=== PATIENT | female | born 1975 | race African-American/Black ===

== ENCOUNTER 2018-08-17 19:45 | Emergency (ER) | payer BC, OTHER ==
[2018-08-17] MEDS ORDERED: SOD CHLORIDE 0.9% 500 ML IV (20:08)
[2018-08-17 20:43] LABS: URINE BLOOD (Dip) POC Negative (NEGATIVE); URINE GLUCOSE (Dip) POC Negative (NEGATIVE); URINE KETONES (Dip) POC Negative (NEGATIVE); URINE LEUKOCYTE EST (Dip) POC Negative (NEGATIVE); URINE NITRITE (Dip) POC Negative (NEGATIVE); URINE TOTAL PROTEIN POC Negative (NEGATIVE)
[2018-08-17 20:43] LABS: URINE PH (Dip) POC 5.5 (5.0-8.5)
[2018-08-17] MEDS: KETOROLAC 30 MG INJ IV (21:59)
[2018-08-17 22:04] LABS: ADD MAN DIFF? NO
[2018-08-17 22:11] LABS: WHITE BLOOD COUNT 5.9 10^3/ul (4.8-10.8)
[2018-08-17 22:11] LABS: BASOPHIL # 0.1 10^3/ul (0.0-0.1); BASOPHILS % 0.8 % (0.0-2.0); EOSINOPHILS # 0.2 10^3/ul (0.0-0.5); EOSINOPHILS % 2.5 % (0.0-7.0); HEMATOCRIT 36.2 % (37.0-47.0); HEMOGLOBIN 11.8 g/dl (12.0-16.0); LYMPHOCYTES # 2.6 10^3/ul (0.8-2.9); LYMPHOCYTES % 44.3 % (15.0-51.0); MEAN CORPUSCULAR HEMOGLOBIN 27.7 pg (29.0-33.0); MEAN CORPUSCULAR HGB CONC 32.6 g/dl (32.0-37.0); MEAN PLATELET VOLUME 11.8 fl (7.4-10.4); MONOCYTE # 0.5 10^3/ul (0.3-0.9); MONOCYTES % 7.8 % (0.0-11.0); NEUTROPHIL # 2.6 10^3/ul (1.6-7.5); NEUTROPHILS % 44.4 % (39.0-77.0); PLATELET COUNT 250 10^3/UL (140-415); RED BLOOD COUNT 4.26 10^6/ul (4.20-5.40); RED CELL DISTRIBUTION WIDTH 14.6 % (11.5-14.5)
[2018-08-17 22:40] LABS: ALANINE AMINOTRANSFERASE 26 IU/L (13-69); ALBUMIN 4.4 g/dl (3.3-4.9); ALBUMIN/GLOBULIN RATIO 1.33; ALKALINE PHOSPHATASE 35 IU/L (42-121); ANION GAP 10 (5-13); ASPARTATE AMINO TRANSFERASE 21 IU/L (15-46); BILIRUBIN,INDIRECT 0.2 mg/dl (0-1.1); BILIRUBIN,TOTAL 0.2 mg/dl (0.2-1.3); BLOOD UREA NITROGEN 26 mg/dl (7-20); CALCIUM 9.4 mg/dl (8.4-10.2); CARBON DIOXIDE 26 mmol/L (21-31); CHLORIDE 104 mmol/L (97-110); CREATININE 0.88 mg/dl (0.44-1.00); Estimated GFR > 60 mL/min (>60); GLUCOSE 87 mg/dl (70-220); LIPASE 155 U/L (23-300); POTASSIUM 3.8 mmol/L (3.5-5.1); SODIUM 140 mmol/L (135-144); TOTAL PROTEIN 7.7 g/dl (6.1-8.1)
== END 2018-08-17 23:32 | disposition home or self-care (01) ==
LOC: E/R 19:45
DX: N83.201 Unspecified ovarian cyst, right side (principal)
CPT/HCPCS: 36415; 74176; 76830; 76856; 80053; 81003; 81025; 83690; 85025; 96374; 99285-25